=== PATIENT | female | born 2000 | race Two or more races ===

== ENCOUNTER 2022-12-15 11:12 | Emergency (ER) | payer SELFPAY ==
--- NOTE | ~2022-12-15 | XR_ITS ---
EXAMINATION: XR FOOT, RIGHT CLINICAL INFORMATION: Pain COMPARISON: None available. TECHNIQUE: AP, lateral, and oblique views of the right foot. FINDINGS: Cortical irregularity likely a comminuted fracture through the middle phalanx fifth toe. There is soft tissue swelling. No other fractures or dislocations. XR/XR foot RT min 3V IMPRESSION: * Comminuted nondisplaced fracture through the middle phalanx fifth toe. * Soft tissue swelling.
[2022-12-15 12:06] VITALS: BP 139/82; PULSE 87; RESP 16; TEMP 36.4; O2SAT 98; BMI 31.1
--- NOTE | 2022-12-15 12:07 | ED.LOWEXIN ---
HPI - Extremity Injury (Lower) General Chief Complaint: Extremity Injury, Lower Stated Complaint: R foot injury/ work injury Time Seen by Provider: 12/15/22 12:41 Source: patient, RN notes reviewed and old records reviewed Mode of arrival: ambulatory History of Present Illness HPI Narrative: 22-year-old female with no significant past medical history presenting to the ED complaining of right foot > 5th toe pain and ecchymosis s/p tripping over a Pallet yesterday morning at work. Denies head trauma, LOC, or injury to other area. Denies numbness/tingling. Has been ambulatory with pain Related Data Allergies Allergy/AdvReac Type Severity Reaction Status Date / Time No Known Allergies Allergy Verified 12/15/22 12:12 Review of Systems Review of Systems: Constitutional: No Fever, No Chills ENT/Mouth: No Ear Pain, No Nasal Congestion, No sore throat, No Rhinorrhea, No Swallowing Difficulty Cardiovascular: No Chest Pain, No SOB Respiratory: No Cough Gastrointestinal: No Nausea, No Vomiting, No Abdominal pain Musculoskeletal: +joint pain, No Myalgias, +Joint Swelling Skin: No Skin Lesions, No rash Neuro: No Weakness, No Numbness, No Paresthesias Yes all other systems are reviewed and are negative Constitutional: Constitutional: Reports as per [facility] [place] Past Medical History Attestation statement: The following information was validated with the patient. Source: old records reviewed Social History Social History Advance Directives: No Advance Directives Information Provided: No Patient : No Physical Exam Vital Signs: Vital Signs: Last Vital Signs Temp 99.7 F 12/15/22 14:07 Pulse 85 12/15/22 14:07 Resp 18 12/15/22 14:07 BP 122/70 12/15/22 14:07 Pulse Ox 100 12/15/22 14:07 O2 Del Method Room Air 12/15/22 14:07 BMI result Body Mass Index 31.1 Const: General: cooperative, healthy appearing and no acute distress Orientation/consciousness: patient oriented x3 Limitations: no limitations HEENT: Head: Yes normal to inspection and Yes atraumatic Ears: hearing grossly normal bilaterally General nose exam: Normal external nose present Face and sinus: Yes normal facial exam Eyes: General: appearance normal, both eyes and all related structures EOM: EOMs intact bilaterally Neck: Neck: Yes normal visual inspection and Yes no meningeal signs Resp: Effort & Inspection: normal respiratory effort and no respiratory distress Cardio: Rate: regular rate Peripheral pulses: radial pulses present Skin: Rashes: no rashes Wounds: no wounds Neuro: General: patient oriented x3, tone normal and no meningeal signs Cranial nerves: Yes CN's II-XII intact bilaterally Gait exam (Neuro): Normal gait present Extrem: Other: Right foot volar aspect with ecchymosis > lateral aspect, mild swelling, & erythema/swelling to 5th toe. Tender to palpation. Neurovascularly intact. ROM limited secondary to pain Course Course Course Narrative: This is an RME: Additional HPI, ROS, PE not included below will be deferred to primary provider. This is a [id number] presenting to the emergency department with a complaint of foot pain since yesterday. Patient states that while she was working yesterday she tripped over a Pallet, and injured her right fifth toe. Patient has ecchymotic right 5th toe and diffuse ecchymosis noted to the plantar aspect of the foot. DP pulses 2+. Full range of motion of the ankle. Plan: Xray right foot XR foot RT min 3V IMPRESSION: * Comminuted nondisplaced fracture through the middle phalanx fifth toe. * Soft tissue swelling. >>charles tape applied Results discussed with patient including worrisome signs and symptoms and strict return precautions, and when to return to the emergency department. They verbalized understanding and feel safe for discharge at this time. Medical Decision Making Medical Decision Making MDM Narrative: 22-year-old female with no significant past medical history presenting to the ED complaining of right foot > 5th toe pain and ecchymosis s/p tripping over a Pallet yesterday morning at work. On exam vital signs stable, NAD, nontoxic appearing, physical exam as above. Concern for foot/toe fracture versus sprain. Low suspicion for septic joint/arthritis or osteo Plan: X-rays Please refer to course for remaining clinical decision making, interpretation of labs/imaging results, and discussions with consultants and/or family members. Differential Diagnosis Differential Diagnoses: The differential diagnosis associated with the presentation includes As above Independent Interpretation I performed an independent interpretation of an: Plain X-Ray Radiology Impression Discussion of test interpretation with radiology: I have reviewed the radiologist's reading. External Record Review External record reviewed: Inpatient record, Office record, Outpatient record, Prior outpatient labs, Prior outpatient radiology, Primary care record and Outside ED record Tests considered The following testing was considered but not selected: As above Prescription Management I considered prescription management with: Pain Medication Discharge Plan Discharge Clinical Impression: Fracture of toe Patient Disposition: Home, Self-Care Instructions: Toe Fracture (ED) Additional Instructions: You broke her pinky toe Use charles tape at home daily, you can take after shower however reapply afterwards Ice and elevate Take Tylenol Motrin Follow-up with her doctor /Orthopedics Le rompiste el dedo me?ique Use Charles Tape en casa todos los d?as; puede tomarlo despu?s de la ducha, brea vuelva a aplicarlo despu?s. Hielo y eleve [place] Tylenol Motrin Seguimiento con guerra m?dico/Ortopedia Referrals: [facility] [Provider Group] - 1 week Work [facility] [Outside] Stand Alone Forms: Work/School Release Interventions: ED Discharge Assessment Last Done: 12/15/22 14:21 Discharge Date/Time: 12/15/22 14:20 Print Language: [place]
--- NOTE | 2022-12-15 14:00 | PC.NURSE ---
pt r toe tahir taped per MARGUERITE cox. noted swelling/bruising- skin c/d/i. +CMS- denies numbness/tingling. 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
[2022-12-15 14:07] VITALS: BP 122/70; PULSE 85; RESP 18; TEMP 37.6; O2SAT 100
== END 2022-12-15 14:20 | disposition home or self-care (01) ==
PROVIDERS: Emergency Provider Emergency Medicine Emergency Medical Services
DX: S92.524A Nondisplaced fracture of middle phalanx of right lesser toe(s), initial encounter for closed fracture (principal); W18.41XA Slipping, tripping and stumbling without falling due to stepping on object, initial encounter; Y93.89 Activity, other specified; Y92.59 Other trade areas as the place of occurrence of the external cause; Y99.0 Civilian activity done for income or pay
CPT/HCPCS: 73630; 99283; 99284

== ENCOUNTER 2023-08-29 09:30 | Outpatient (REF) | payer MEDICAID, OTHER, SELFPAY ==
[2023-08-29 11:03] LABS: HBS Num1 0.72 mIU/mL (0-7.99); ~Hepatitis B Surface Antibody NONREACTIVE (Nonreactive)
[2023-08-31 03:14] LABS: Rubeola IgG (Measles) <13.50 AU/mL
[2023-09-04 19:28] LABS: Polio 1 Titer <1:8; Polio 3 Titer 1:16
== END 2023-08-29 09:31 | disposition home or self-care (01) ==
LOC: HO.LAB 09:30
PROVIDERS: Visit Provider Family Medicine Adult Medicine
DX: Z23 Encounter for immunization (principal)
CPT/HCPCS: 36415; 86382; 86706; 86735; 86762; 86765; 86787

== ENCOUNTER 2023-12-24 09:39 | Emergency (ER) | payer MEDICAID, OTHER, SELFPAY ==
[2023-12-24 09:46] VITALS: BP 128/86; PULSE 85; RESP 18; TEMP 36.9; O2SAT 100; BMI 33.6
--- NOTE | 2023-12-24 11:45 | ED.GENADULT ---
HPI - General Adult General Chief complaint: Ear Problems Stated complaint: r ear pain Time Seen by Provider: 12/24/23 10:54 Source: patient Mode of arrival: ambulatory Limitations: no limitations History of Present Illness ED Provider: Rojelio Vital HPI narrative: [age] year old female presents to ED for right ear discomfort. Patient states right inner ear pain and feels swollen. Patient was evaluated by school nurse was told her right inner ear swollen. Patient denies any fever or chills or recent travel/recent swimming. Patient denies any chest pain, shortness of breath, coughing up blood, headache, dizziness, or any recent trauma to the ear. Related Data Previous Rx's ?Medication ?Instructions ?Recorded naproxen 500 mg tablet 500 mg PO BID PRN pain 7 days #14 12/24/23 tabs [id number] 3.3 4 drp otic (ear) left TID 7 days 12/24/23 mg-3 mg-10 mg-0.5 mg/mL ear #10 mL drops,susp (Cortisporin-TC) Allergies Allergy/AdvReac Type Severity Reaction Status Date / Time No Known Allergies Allergy Verified 12/24/23 09:48 Review of Systems Review of Systems: Right ear pain Yes all other systems are reviewed and are negative PMFSH Social History Social History Advance Directives: No Advance Directives Information Provided: Yes Do you have a plan to hurt others: No Plan Physical Exam ED Vital Signs: Vital Signs - 24 hr 12/24/23 09:46 12/24/23 12:07 Temperature 98.4 F 98.4 F Pulse Rate 85 85 Respiratory Rate 18 18 Blood Pressure 128/86 128/86 Pulse Oximetry 100 100 Oxygen Delivery Method Room Air Room Air BMI result Body Mass Index 33.6 Const General: cooperative, healthy appearing, comfortable, no acute distress, well developed, alert, awake and Physically active Orientation/consciousness: patient oriented x3 HENMT Head: Yes normal to inspection, Yes No palpable skull fracture present, Yes normocephalic, Yes atraumatic and No abrasion Ears: hearing grossly normal bilaterally, external ears normal, TM's normal bilaterally, TM normal on the right, TM normal on the left, mastoids normal, no periauricular adenopathy and Abnormal EAC present edema and otic discharge (white/yellow) General nose exam: Normal external nose present, Normal nares present and No nasal polyps present Throat: Yes posterior oropharynx normal, Yes tonsils normal and Yes uvula midline Eyes General: appearance normal, both eyes and all related structures Neck Neck: Yes normal visual inspection, Yes full ROM, Yes no lymphadenopathy, Yes no meningeal signs, Yes trachea midline, Yes supple, No anterior neck swelling and No tender Chest Chest palpation & inspection: normal inspection of the chest and normal palpation of entire chest wall Resp Effort & Inspection: normal respiratory effort and able to speak in complete sentences Auscultation: clear to auscultation bilaterally Cardio Jugular venous distension: no JVD Heart sounds: S1 normal heart sound present and S2 normal heart sound present GI Inspection: Yes normal to inspection Palpation (GI): Soft to palpation, not firm, nontender, no guarding and not rigid General: No CVA tenderness and Yes no CVA tenderness Back/Spine/Pelvis Back: no CVA tenderness, No CVA tenderness and No back tenderness Skin General skin exam: no rashes or lesions noted, elasticity normal and turgor normal Neuro General: patient oriented x3, gait normal, tone normal, moves all extremities, Normal light touch and pain sensation, no meningeal signs, no focal motor deficits, CN's II-XI intact bilaterally and normal sensation to monofilament Extrem General: Yes normal to inspection, Yes full ROM and Yes capillary refill normal Psych Appearance: grossly normal, well kempt and not disheveled Medical Decision Making Medical Decision Making MDM Narrative: 23-year-old female presents to ED for right ear discomfort. Physical exam indicates right otitis externa. Negative for signs of mastoiditis, osteomyelitis, foreign body, or barotrauma. Patient will be discharged with ear antibiotics. Patient explained worrisome signs and informed to return to the ED immediately. Differential Diagnosis Differential Diagnoses: The differential diagnosis associated with the presentation includes (Otitis media otitis externa) Admission/Observation Consideration of admission/observation: Escalation of care including admission/observation considered Independent Historian Clinical information obtained from an independent historian. History obtained from or confirmed by: Other (patient) External Record Review External record reviewed: Other (prior visits) Prescription Management I considered prescription management with: Antibiotic Discharge Plan Discharge Clinical Impression: Otitis externa Patient Disposition: Home, Self-Care Instructions: Otitis Externa (ED) Additional Instructions: Recommend follow-up with primary care provider. Return to the ED immediately for severe ear pain, bloody discharge, yellow/green/white discharge, redness/swelling in front/behind the ear, headache, sore throat, dental pain, fever, chills, neck swelling, neck pain, sore throat, or any other concerning symptoms. Prescriptions: New Cortisporin-TC 3.3-3-10-0.5 mg/mL drops,suspension 4 drp otic (ear) left TID 7 Days Qty: 10 0RF naproxen 500 mg tablet 500 mg PO BID PRN (Reason: pain) 7 Days Qty: 14 0RF Stand Alone Forms: Work/School Release Interventions: ED Discharge Assessment Last Done: 12/24/23 12:07 Discharge Date/Time: 12/24/23 12:07 Print Language: Sinhala
[2023-12-24 12:07] VITALS: BP 128/86; PULSE 85; RESP 18; TEMP 36.9; O2SAT 100
== END 2023-12-24 12:07 | disposition home or self-care (01) ==
PROVIDERS: Emergency Provider Emergency Medicine
DX: H60.91 Unspecified otitis externa, right ear (principal); H92.01 Otalgia, right ear
CPT/HCPCS: 99282; 99283